=== PATIENT | male | born 1995 | race Caucasian/White ===

== ENCOUNTER 2017-01-30 18:28 | Emergency (ER) | payer OTHER ==
[~2017-01-30] VITALS: Ht 175.3 cm; Wt 68.0 kg
[~2017-01-30 18:28] MED LIST: CIPRO500 MG PO; DOXYCYCLINE HY100 MG PO; FLAGYL500 MG PO; NORCO 5-325 TA1 EACH PO; ZITHROMAX500 MG PO
[2017-01-30] MEDS ORDERED: DOXYCYCLINE HY100 MG PO (19:34)
[2017-01-30] MEDS ORDERED: TRAMADOL HCL50 MG PO (19:34)
== END 2017-01-30 19:55 | disposition home or self-care (01) ==
LOC: ED 18:28
DX: N45.1 Epididymitis (principal); F17.200 Nicotine dependence, unspecified, uncomplicated
CPT/HCPCS: 99283